=== PATIENT | female | born 1985 ===

== ENCOUNTER 2018-08-27 09:27 | Emergency (ER) | payer MEDICAID ==
[2018-08-27 09:39] VITALS: RESP 18
--- NOTE | 2018-08-27 10:32 | C.PDOC ---
History Of Present Illness 33y/o female presents to the ED for evaluation of right ankle pain x 5 days. Patient states she mis-stepped while walking 3 days ago and inverted her right ankle. She was initially okay, but reports today the area became more swollen and painful. Patient reports experiencing some 4/10 pain with walking. She denies head injury, LOC, extremity numbness/weakness. Time Seen by Provider: 08/27/18 10:30 Chief Complaint (Nursing): Lower Extremity Problem/Injury History Per: Patient History/Exam Limitations: no limitations Onset/Duration Of Symptoms: Hrs Current Symptoms Are (Timing): Still Present Pain Scale Rating Of: 4 - Ankle/Foot Description Of Injury: Other (inverted) Past Medical History Reviewed: Historical Data, Nursing Documentation, Vital Signs Vital Signs: Last Vital Signs Temp 98.2 F 08/27/18 09:37 Pulse 74 08/27/18 09:37 Resp 18 08/27/18 09:37 BP 122/78 08/27/18 09:37 Pulse Ox 98 08/27/18 09:37 - Medical History PMH: No Chronic Diseases Surgical History: No Surg Hx Family History: States: Unknown Family Hx Review Of Systems Musculoskeletal: Positive for: Other (right ankle pain ) Neurological: Negative for: Weakness, Numbness, Other (LOC, head injury ) Physical Exam - Physical Exam Appears: Non-toxic, No Acute Distress Skin: Normal Color, Warm, Dry Extremity: Tenderness (Slight tenderness to right ankle and the plantar surface of the foot ), Capillary Refill (less than 2 seconds ), No Swelling Pulses: Left Dorsalis Pedis: Normal, Right Dorsalis Pedis: Normal Neurological/Psych: Normal Speech, Normal Cognition, Normal Sensation ED Course And Treatment O2 Sat by Pulse Oximetry: 98 (on RA) Pulse Ox Interpretation: Normal Medical Decision Making Medical Decision Making: No XR needed at this time. Patient given Motrin and Tylenol. Area was CECILIA wrapped and patient was advised on RICE. Patient is resting comfortably, and is in no acute distress, reports an improvement in her pain. Patient was instructed to follow up with PMD in 1-2 days for further evaluation. Disposition Counseled Patient/Family Regarding: Diagnosis, Need For Followup, Rx Given - Disposition Referrals: [facility] at [facility] [Outside] Disposition: HOME/ ROUTINE Disposition Time: 10:30 Condition: STABLE Additional Instructions: Rest, Ice 3 times a day, elevate your foot and use an cecilia wrap. Follow up with your doctor or our clinic. Prescriptions: Ibuprofen [Motrin] 600 mg PO TID #15 tab Instructions: Ankle Sprain (DC) Forms: General Discharge Instructions, [facility] (I[place]ic), Work Excuse - Clinical Impression Clinical Impression: Right ankle sprain - Scribe Statement The provider has reviewed the documentation as recorded by the Scribe (Sharron Christine) Provider Attestation: All medical record entries made by the Scribe were at my direction and personally dictated by me. I have reviewed the chart and agree that the record accurately reflects my personal performance of the history, physical exam, medical decision making, and the department course for this patient. I have also personally directed, reviewed, and agree with the discharge instructions and disposition.
[2018-08-27 16:26] VITALS: BP 110/70; PULSE 70; TEMP 98
[2018-08-27 18:16] VITALS: O2SAT 98
== END 2018-08-27 10:40 | disposition home or self-care (01) ==
LOC: C.ER 09:27
DX: S93.401A Sprain of unspecified ligament of right ankle, initial encounter (principal); Y93.01 Activity, walking, marching and hiking